=== PATIENT | female | born 1980 | race Caucasian/White ===

== ENCOUNTER 2017-04-16 13:09 | Emergency (ER) | payer MEDICAID ==
[~2017-04-16] VITALS: Ht 177.8 cm; Wt 115.0 kg
[~2017-04-16 13:09] MED LIST: ACET-1025 PO; CEPH-572 PO; CLOT15CR5 TOP; DIAZ2TAB PO; GLUC-99 PO; LORA-512 PO; PNV91TAB3 PO; TRAM50TA2 PO
[2017-04-16 19:21] VITALS: BP 162/113
== END 2017-04-16 21:39 | disposition home or self-care (01) ==
LOC: ER 13:10
DX: S83.91XA Sprain of unspecified site of right knee, initial encounter (principal); G89.29 Other chronic pain; Z88.5 Allergy status to narcotic agent; X50.1XXA Overexertion from prolonged static or awkward postures, initial encounter; Y93.89 Activity, other specified; Y92.89 Other specified places as the place of occurrence of the external cause; Y99.8 Other external cause status
CPT/HCPCS: 29505; 73560; 99284

== ENCOUNTER 2022-08-08 14:35 | Emergency (ER) | payer MEDICAID ==
[~2022-08-08] VITALS: Ht 175.3 cm; Wt 113.0 kg
[~2022-08-08 14:35] MED LIST changes: +CLOT15CR35 TOP; -CLOT15CR5 TOP
[2022-08-08 14:38] VITALS: BP 135/102
[2022-08-08] MEDS ORDERED: PRED20TA PO (17:14)
[2022-08-08] MEDS ORDERED: predniSONE 20 mg tablet PO ONE (17:15)
== END 2022-08-08 17:38 | disposition home or self-care (01) ==
LOC: ER 14:36
DX: L23.5 Allergic contact dermatitis due to other chemical products (principal); G89.29 Other chronic pain; Z98.890 Other specified postprocedural states; Z88.5 Allergy status to narcotic agent
CPT/HCPCS: 99283; J7512

== ENCOUNTER 2022-11-30 13:26 | Emergency (ER) | payer MEDICAID ==
[~2022-11-30] VITALS: Ht 177.8 cm; Wt 113.6 kg
[2022-11-30 13:38] VITALS: BP 162/100; PULSE 100; RESP 18; TEMP 97.9; O2SAT 95
[2022-11-30 13:45] LABS: BASOPHILS # (AUTO) 0.1 X10'3 (0-0.2); BASOPHILS % (AUTO) 0.8 % (0-1); EOSINOPHILS # (AUTO) 0.2 X10'3 (0-0.9); HEMATOCRIT 45.2 % (35.0-45.0); HEMOGLOBIN 15.3 g/dl (12.0-16.0); LYMPHOCYTES # (AUTO) 2.4 X10'3 (1.1-4.8); LYMPHOCYTES % (AUTO) 25.4 % (21-51); MEAN CORPUSCULAR HEMOGLOBIN 31.2 PG (27.0-31.0); MEAN CORPUSCULAR VOLUME 91.9 FL (78-98); MONOCYTES # (AUTO) 0.7 X10'3 (0-0.9); MONOCYTES % (AUTO) 7.5 % (2-12); NEUTROPHILS % (AUTO) 64.3 % (42-75); PLATELET COUNT 237 X10'3 (140-440); RED BLOOD COUNT 4.92 X10'6 (4.20-5.60); RED CELL DISTRIBUTION WIDTH 13.5 % (11.5-14.5); WHITE BLOOD COUNT 9.3 X10'3 (4.5-11.0)
[2022-11-30 14:09] LABS: ALANINE AMINOTRANSFERASE 35 U/L (12-78); ALBUMIN/GLOBULIN RATIO 1.2 (1.1-1.5); ALKALINE PHOSPHATASE 58 IU/L (46-116); ANION GAP 9 (8-16); ASPARTATE AMINO TRANSFERASE 24 U/L (10-37); BILIRUBIN,TOTAL 0.5 MG/DL (0.1-1.0); CALCIUM 9.1 MG/DL (8.5-10.1); CHLORIDE 106 MMOL/L (99-107); CREATININE 0.93 MG/DL (0.40-0.90); GLUCOSE 101 MG/DL (70-104); POTASSIUM 3.8 MMOL/L (3.5-5.1); SODIUM 142 MMOL/L (135-145); TOTAL PROTEIN 7.4 G/DL (6.4-8.2); eCRCL 84 ML/MIN; eGFR 66 ML/MIN
[2022-11-30 14:22] LABS: BLOOD UREA NITROGEN 18 MG/DL (7-18); BUN/CREATININE RATIO 19.4 (10.0-20.0)
[2022-11-30 14:45] LABS: PRO BRAIN NATRIURETIC PEPTIDE < 30 PG/ML (0-125)
== END 2022-11-30 16:54 | disposition left against medical advice (07) ==
LOC: ER 13:27
DX: R07.9 Chest pain, unspecified (principal); Z53.21 Procedure and treatment not carried out due to patient leaving prior to being seen by health care provider
CPT/HCPCS: 36415; 80053; 83880; 84484; 85025; 93005; 99281